=== PATIENT | female | born 1980 | race Two or more races ===

== ENCOUNTER 2024-02-12 07:00 | Outpatient (CLI) | payer OTHER ==
[~2024-02-12 07:00] MED LIST: FIORICET TABLET1 TAB PO; IMODIUM2 MG; PRENATAL1 TAB PO
== END 2024-02-12 07:05 | disposition home or self-care (01) ==
LOC: EKG 07:00 → CIR.AMB 02-18 09:30 → EDSTATUS 02-18 11:00 → SURG 02-18 11:00
PROVIDERS: ATTEND Surgery
DX: K43.0 Incisional hernia with obstruction, without gangrene (principal); I10 Essential (primary) hypertension